=== PATIENT | female | born 1990 | race Caucasian/White ===

== ENCOUNTER 2023-05-23 10:18 | Emergency (ER) | payer OTHER ==
[~2023-05-23] VITALS: Ht 152.4 cm; Wt 59.0 kg
== END 2023-05-23 15:10 ==
LOC: ER 10:18
DX: L03.116 Cellulitis of left lower limb (principal); S80.862A Insect bite (nonvenomous), left lower leg, initial encounter; W57.XXXA Bitten or stung by nonvenomous insect and other nonvenomous arthropods, initial encounter; Y93.9 Activity, unspecified; Y92.9 Unspecified place or not applicable; Y99.9 Unspecified external cause status